=== PATIENT | female | born 2000 ===

== ENCOUNTER 2022-09-10 03:43 | Emergency (ER) | payer SELFPAY ==
[~2022-09-10] VITALS: Ht 165.1 cm; Wt 91.0 kg
[2022-09-10 03:44] VITALS: BP 127/78
[2022-09-10] MEDS ORDERED: LETR2.5T2 PO (03:56)
[2022-09-10] MEDS ORDERED: LOVE1INJ SC (03:56)
[2022-09-10] MEDS ORDERED: ZOLO100T PO (03:56)
[2022-09-10] MEDS ORDERED: PREN1TAB11 PO (03:56)
[2022-09-10] MEDS ORDERED: PEPC1TAB5 PO (03:56)
[2022-09-10] MEDS ORDERED: DOXY-444 PO (03:56)
[2022-09-10] MEDS ORDERED: DIPH-435 PO (03:56)
[2022-09-10] MEDS ORDERED: ASPI81TA26 PO (03:56)
[2022-09-10] MEDS ORDERED: HYDR50TA70 PO (03:56)
[2022-09-10] MEDS ORDERED: CLAR10CA3 PO (03:56)
[2022-09-10] MEDS ORDERED: METF10004 PO (03:56)
== END 2022-09-10 23:40 | disposition left against medical advice (07) ==
LOC: M ED 03:43
DX: Z53.21 Procedure and treatment not carried out due to patient leaving prior to being seen by health care provider (principal)